=== PATIENT | male | born 1980 | race Caucasian/White ===

== ENCOUNTER 2018-05-31 18:20 | Emergency (ER) | payer MEDICAID ==
[~2018-05-31] VITALS: Ht 167.6 cm; Wt 97.1 kg
[2018-05-31 18:33] VITALS: BP_SYST 147
[2018-05-31 19:40] VITALS: BP_SYST 140
== END 2018-05-31 19:40 | disposition home or self-care (01) ==
LOC: SED 18:20
DX: R04.0 Epistaxis (principal); R03.0 Elevated blood-pressure reading, without diagnosis of hypertension
CPT/HCPCS: 99282